=== PATIENT | male | born 1975 | race Caucasian/White ===

== ENCOUNTER → 2024-04-21 06:34 | Day surgery (SDC) | payer OTHER, SELFPAY | LOC: GI 06:34 | PROVIDERS: ATTENDING PHYSICIAN Internal Medicine | DX: Z12.11 Encounter for screening for malignant neoplasm of colon (principal); K57.30 Diverticulosis of large intestine without perforation or abscess without bleeding; D12.3 Benign neoplasm of transverse colon; K63.5 Polyp of colon; D12.5 Benign neoplasm of sigmoid colon | CPT/HCPCS: 45385; 45380; 88305 ==

== ENCOUNTER → 2024-08-07 11:06 | Outpatient (REF) | payer OTHER, SELFPAY | LOC: RAD 11:06 | PROVIDERS: ATTENDING PHYSICIAN Nurse Practitioner Family; FAMILY PHYSICIAN Family Medicine | DX: M25.552 Pain in left hip (principal) | CPT/HCPCS: 73502 ==

== ENCOUNTER → 2024-08-13 17:48 | Outpatient (REF) | payer OTHER, SELFPAY | LOC: MRI 17:48 | PROVIDERS: ATTENDING PHYSICIAN Nurse Practitioner Family; FAMILY PHYSICIAN Family Medicine; REFERRING PHYSICIAN Family Medicine | DX: M25.552 Pain in left hip (principal) | CPT/HCPCS: 73721 ==

== ENCOUNTER 2024-09-22 09:13 | Outpatient (RCR) | payer OTHER, SELFPAY | END 2024-09-22 23:59 | disposition home or self-care (01) | LOC: RPT 09:13 | PROVIDERS: ATTENDING PHYSICIAN Orthopaedic Surgery; FAMILY PHYSICIAN Family Medicine | DX: M76.32 Iliotibial band syndrome, left leg (principal); Z73.6 Limitation of activities due to disability | CPT/HCPCS: 97110; 97140; 97161; 97530 ==

== ENCOUNTER 2025-04-01 20:17 | Emergency (ER) | payer OTHER, SELFPAY ==
[2025-04-01] VITALS (8 sets, daily range): BP systolic 146–174; BP diastolic 96–110; BMI 36.2
[2025-04-01 21:08] LABS: % Basophils 0.8 % (0-2); % Eosinophils 2.5 % (0-6); % Immature Granulocytes 0.3 % (0-0.5); % Lymphocytes 28.4 % (20.5-51.1); % Monocytes 10.2 % (1.7-9.3); % Neutrophils 57.8 % (42.2-75.2); Absolute Basophils 0.1 10^3/uL (0-0.2); Absolute Eosinophils 0.2 10^3/uL (0-0.7); Absolute Lymphocytes 1.7 10^3/uL (1.2-3.4); Absolute Monocytes 0.6 10^3/uL (0.1-0.6); Absolute Neutrophils 3.4 10^3/uL (1.4-6.5); Hematocrit 40.9 % (39.0-52.0); Hemoglobin 14.5 g/dL (13.0-18.0); Mean Corp Hgb Conc. 35.5 g/dL (33.0-37.0); Mean Corpuscular Volume 84.5 fL (80.0-94.0); Nucleated Red Blood Cells % 0 % (-); Platelet Count 192 10^3/uL (130-400); Red Blood Cell Count 4.84 10^6/uL (4.70-6.10); Red Cell Dist. Width 12.5 % (11.5-14.5); White Blood Cell Count 5.9 10^3/uL (4.8-10.8)
[2025-04-01 21:22] LABS: ALT (SGPT) 37 U/L (0-50); AST (SGOT) 22 U/L (17-59); Albumin 4.2 g/dl (3.5-5.0); Alkaline Phosphatase 45 U/L (38-126); Blood Urea Nitrogen 18 mg/dl (9-20); Calcium 9.7 mg/dl (8.4-10.2); Carbon Dioxide 22 mmol/L (22-30); Chloride 108 mmol/L (98-107); Glucose 170 mg/dl (70-99); Potassium 3.8 mmol/L (3.5-5.1); Sodium 138 mmol/L (135-145); Total Bilirubin 1.1 mg/dl (0.2-1.3); Total Protein 6.4 g/dl (6.3-8.2); eGFR > 60.00
[2025-04-01 21:32] LABS: Troponin I < 0.012 ng/ml
[2025-04-01] MEDS: PROTONIX IV 40 MG IV (23:35)
[2025-04-02] VITALS: BP 166/108
[2025-04-02 00:04] LABS: Troponin I < 0.012 ng/ml
--- NOTE | 2025-04-02 00:52 | ED.GENMED ---
History of Present Illness
General
Chief Complaint: Chest Problem
Time Seen by Provider: 04/01/25 22:08
History of Present Illness
History of Present Illness:
Note:
CHIEF COMPLAINT(S)
Heartburn and intermittent chest tightness.
HISTORY OF PRESENT ILLNESS
The patient is a 49-year-old male with a recent family history of heart issues, presenting with symptoms that began approximately one week prior. He reports experiencing persistent heartburn since of last week, noticeably worsening after
meals, and sometimes occurring without any direct relation to food, such as during stressful situations or interactions. For instance, he noted the onset of heartburn during a meeting with a customer at around 1:30 PM, despite having only eaten
breakfast comprising eggs, cheese, ham, and coffee, and a subsequent snack of a [employer]uma bar. He took antacid tablets throughout the day, reporting some relief, although he consumed approximately six to seven tablets by the evening. During a dinner
involving vera Jimenes, he experienced a particularly severe episode of heartburn. He reports that his symptoms also resemble those experienced by his brother, who required stents for heart issues. He further describes sensations of chest tightness
during physical exertion, such as walking uphill, leading to shortness of breath and a pounding heartbeat, though without significant pain. While these symptoms are relatively constant, they can intensify after eating. The patient denies regular
exercise. He has a history of high cholesterol markers but does not routinely visit a physician. His blood pressure readings have been noted as elevated during this admission.
CHRONIC MEDICAL CONDITIONS SIGNIFICANTLY AFFECTING CARE
The patient notes a history of elevated cholesterol markers indicating potential hyperlipidemia.
SOCIAL DETERMINANTS AFFECTING HEALTH
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 He acknowledges the need to incorporate exercise into his routine but has struggled to do so.
FAMILY HISTORY
The patient has a significant family history of cardiovascular disease, including a brother who required cardiac stenting and a father with vascular problems and an aortic aneurysm. His grandfather underwent one of the first bypass surgeries [place] the
[place].
REVIEW OF SYSTEMS
- Cardiovascular: Reports chest tightness and palpitations during stress and exertion.
- Gastrointestinal: Persistent heartburn, exacerbated by meals, sometimes occurring independently of food intake.
- Musculoskeletal: Denies routine exercise but acknowledges tightness during physical exertion.
PHYSICAL EXAM
- General: Patient is alert and oriented times three, in no apparent distress.
- Cardiovascular: Heart rate is regular, no murmurs detected.
- Respiratory: Lungs are clear upon auscultation.
- Gastrointestinal: Abdomen is not distended.
- Extremities: No edema observed.
- Neurological: No focal motor deficits.
- Dermatological: No abnormalities noted.
- Vital signs and nursing notes reviewed. Blood pressure noted to be hypertensive at 140/101 mmHg.
PROBLEM LIST
Acute Problems:
- Heartburn with atypical presentation.
- Intermittent chest tightness and palpitations.
- Elevated blood pressure noted during current evaluation.
Chronic Problems:
- Family history of cardiovascular disease.
- Hyperlipidemia.
PLAN
- Perform a chest X-ray to evaluate heart size, aorta, and lung condition.
- Repeat the troponin test to rule out any myocardial damage.
- Engage a cardiology follow-up for a possible stress test, considering the patients significant family history.
- Advise the patient on the importance of lifestyle modifications, particularly the initiation of a regular exercise regimen, and dietary adjustments to manage symptoms.
- Discuss potential pharmacological treatments to manage heartburn if symptoms persist.
DIFFERENTIAL DIAGNOSIS
The Differential Diagnosis includes, in no particular order and is not limited to:
1. Gastroesophageal reflux disease (GERD)
2. Angina pectoris
3. Myocardial infarction
4. Gastritis
5. Peptic ulcer disease
6. Anxiety or stress-related disorder
7. Esophageal spasm
8. Hiatal hernia
9. Aortic aneurysm
10. Cholecystitis
CARE-UPDATE
04/02/25 - 00:46
The patients cardiac enzymes are normal, and the chest X-ray is normal as well. A follow-up appointment with the custom feed mill operator helper is being arranged for further evaluation, suggesting the patient avoid strenuous exercise until clearance is given by
cardiology. The patient is prescribed an acid mathematical sciences professor to be taken 30 minutes before breakfast, and is advised to maintain a bland diet over the weekend, avoiding alcohol, caffeine, rich sauces, and dairy. Blood pressure monitoring has been
recommended, with recheck instructions given to either the cardiology team or the back-up option if a timely cardiology appointment is not feasible. The patient is instructed to seek medical attention if symptoms such as shortness of breath or new
pain occur, though this is not anticipated. Tums are allowed for intermittent symptom management. The first dose of the antacid is provided, and the remainder will be sent to the pharmacy for morning use.
Disposition:
SUMMARY OF ENCOUNTER
The patient is a 49-year-old male who presented with intermittent indigestion symptoms persisting for a few days. He reports these symptoms began approximately one week ago and have been accompanied by episodes of chest tightness particularly during
exertion. His family history raises concern for cardiovascular disease. Upon examination, his blood pressure was elevated. Initial evaluation included an EKG, which returned normal results. The decision was made to refer the patient to a cardiology
outpatient chest pain follow-up for further evaluation and stress testing consideration.
DISPOSITION
The patient was advised to follow up with a custom feed mill operator helper and his primary care provider for further evaluation and management. He is to avoid exertional activities until cleared by cardiology.
PLAN
The patient will be referred to the cardiology outpatient clinic for chest pain evaluation and potential stress testing. He is advised to keep a bland diet, take a proton pump inhibitor (PPI) daily, and monitor his blood pressure. Follow-up
appointments with both the custom feed mill operator helper and primary care provider have been recommended.
INDEPENDENT REVIEW OF LABS AND INTERPRETATION OF TESTS
My independent interpretation of the EKG is that it is normal with regular rhythm and no axis deviations or interval changes.
PATIENT EDUCATION AND COUNSELING
The patient was counseled on the importance of dietary modification, adherence to prescribed medication, and the need for follow-up care with cardiology and routine visits with his primary care provider.
FOLLOW-UP INSTRUCTIONS
The patient is advised to avoid any exertional activity until cleared by cardiology. He should maintain a bland diet and take a proton pump inhibitor daily. Regular blood pressure monitoring is also recommended. He is instructed to follow up with
the custom feed mill operator helper for chest pain evaluation and with his primary care provider for ongoing healthcare management.
MEDICATION RECONCILIATION
Prescribed a proton pump inhibitor (PPI) to be taken once daily.
MEDICAL DECISION MAKING
1. Number & Complexity of Problems: Chronic conditions affecting care include a history of elevated cholesterol indicating hyperlipidemia and significant family history of cardiovascular disease.
2. Data Reviewed: EKG results reviewed and interpreted as normal.
3. Risk: Outpatient management is deemed appropriate given the normal EKG and lack of acute myocardial infarction markers; however, the elevated blood pressure and family history necessitate cardiology referral.
PATHOLOGIES TO CONSIDER
- Acute coronary syndrome, given the presentation of chest tightness and significant family history.
- Gastroesophageal reflux disease (GERD), due to the indigestion symptoms.
Phy Exam
Physical Exam
Physical Exam:
.
Course
Orders/Labs/Results
Orders:
Orders
04/01/25 20:17
EKG [Electrocardiogram (*1)] Urgent
Reason for Study: Chest Pain
04/01/25 20:18
EKG- Treatment ONCE
04/01/25 21:00
Cardiac Monitoring- Treatment ONCE
IV Insert/Care/Rem.- Treatment PRN
O2 Therapy [RESP] Urgent
Titrate/Wean O2 to maintain O2 sat greater than (%): 90
Special Instructions: Maintain sats >/=90%
Pulse Ox/spot Check [RESP] Urgent
Quantity: 1
Special Instructions: ON ROOM AIR
04/01/25 21:01
Complete Blood Count/With Diff Urgent
Comprehensive Metabolic Panel Urgent
Troponin I Urgent
04/01/25 23:15
Pantoprazole [Protonix IV] 40 mg IV NOW STA
CR Chest - 2 Views Urgent
Comment:
Reason For Exam: cp, fam hx of aortic aneurysm
04/01/25 23:31
Troponin I Urgent
04/02/25 00:51
Pantoprazole [Protonix] 40 mg PO NOW STA
Abnormal Lab Results
04/01/25
21:01
Monocytes % 10.2 H %
(1.7-9.3)
Chloride 108 H mmol/L
(98-107)
Glucose 170 H mg/dl
(70-99)
04/01/25 21:01
04/01/25 21:01
Vital Signs
Initial and Last Documented VS:
Initial Vital Signs
Temp Pulse Resp BP Pulse Ox
98.6 F 91 18 163/101 97
04/01/25 20:22 04/01/25 20:22 04/01/25 20:22 04/01/25 20:22 04/01/25 20:22
Last Documented Vital Signs
Temp Pulse Resp BP Pulse Ox
98.6 F 71 20 166/108 96
04/01/25 20:22 04/01/25 23:15 04/01/25 23:15 04/02/25 00:00 04/02/25 01:00
*Pulse Oximetry
SaO2: 99
Oxygen Mode of Delivery: Room air
Patient hypoxic: no
*Critical Care Note
Total Time (30-74mins, 75-104mins- exclusive of procedures): Not Applicable
ED Attending Note
-
Portions of this chart may have been created with voice recognition software.� Occasional wrong word or��sound alike� substitutions may have occurred due to the inherent limitations of voice recognition software.
Discharge Plan
Departure
Patient Disposition: Home (Routine Discharge)
Date of Disposition: 04/02/25
Time of Disposition: 00:54
Patient with high blood pressure during this ER visit?: Yes
Discharge Problem:
Chest pain, GERD (gastroesophageal reflux disease)
Instructions: Chest Pain DCA Follow Up, BLOOD PRESSURE
Prescriptions:
New
pantoprazole [Protonix] 40 mg tablet,delayed release (DR/EC)
40 mg PO DAILY Qty: 30 0RF
Rx Instructions:
Please take 30 minutes prior to eating or drinking anything in the morning.
Referrals:
Jeffrey Riddle MD [Family Provider, Family Practice]
Activity Restrictions/Additional Instructions:
Please avoid strenuous or exertional activity until cleared by cardiology. Please see cardiology in the next 48 hours for reevaluation. Return immediately for worsening pain, shortness breath, palpitations, sweating, nausea, weakness of any kind,
numbness, tingling or any other concerns.
Cardiology has been notified and a follow up appointment has been requested. Someone will call you on the next business day to schedule a follow up appointment.
Your blood pressure was elevated while in the Emergency Department, please have your doctor re-evaluate it in the next 48 hours as untreated hypertension may lead to serious complications.
Interventions
Interventions:
*Risk Screen - Suicide Last Done: 04/01/25 20:25
*General Assessment Last Done: 04/01/25 21:35
*Neglect/Abuse Screening Last Done: 04/01/25 20:25
*ED- Fall Risk Assessment Last Done: 04/01/25 21:35
*ED COVID-19 Vaccine History Last Done: 04/01/25 21:35
*Nursing Disposition Last Done: 04/02/25 01:12
ED- Cardiac Assessment Last Done: 04/01/25 21:35
ED- Pulmonary Assessment Last Done: 04/01/25 21:35
Discharge Date and Time
Discharge Date/Time: 04/02/25 01:12
Print Language: WELSH
[2025-04-02] MEDS: PROTONIX 40 MG PO (01:01)
== END 2025-04-02 01:12 | disposition home or self-care (01) ==
LOC: EMR 20:17
PROVIDERS: Emergency Medicine; EMERGENCY PHYSICIAN Emergency Medicine; FAMILY PHYSICIAN Family Medicine
DX: R07.89 Other chest pain (principal); K21.9 Gastro-esophageal reflux disease without esophagitis; R12 Heartburn; E78.00 Pure hypercholesterolemia, unspecified; Z82.49 Family history of ischemic heart disease and other diseases of the circulatory system
CPT/HCPCS: 99283; 96374; 71046; 80053; 84484; 85025; 93005

== ENCOUNTER → 2025-06-28 13:53 | Outpatient (REF) | payer OTHER, SELFPAY | LOC: HWRCS 13:53 | PROVIDERS: ATTENDING PHYSICIAN Internal Medicine Cardiovascular Disease; FAMILY PHYSICIAN Family Medicine | DX: R07.89 Other chest pain (principal) | CPT/HCPCS: 93306 ==

== ENCOUNTER → 2025-07-26 13:50 | Outpatient (REF) | payer OTHER, SELFPAY | LOC: RCS 13:50 | PROVIDERS: ATTENDING PHYSICIAN Internal Medicine Cardiovascular Disease; FAMILY PHYSICIAN Family Medicine | DX: R07.89 Other chest pain (principal) | CPT/HCPCS: 93017 ==